=== PATIENT | female | born 1965 | race African-American/Black ===

== ENCOUNTER 2017-01-06 05:50 | Emergency (ER) | payer OTHER ==
[~2017-01-06] VITALS: Ht 160 cm; Wt 73.9 kg
[~2017-01-06 05:50] MED LIST: ALPR0.5T6 PO; AMLO5TAB2 PO; AMOX875T PO; HYDR12.53 PO; LANS1COM PO; LISI1TAB7 PO; METR500T4 PO; SULF1TAB24 PO
[2017-01-06 05:52] VITALS: BP 137/81
[2017-01-06] MEDS ORDERED: FLUORESCEIN OPHTHALMIC 1 MG STRIP ONE (06:38)
[2017-01-06] MEDS ORDERED: PROPARACAINE OPHTH 0.5%, 15ML ONE (06:38)
[2017-01-06] MEDS ORDERED: HYDROcodone/APAP 5/325 TABLET ONE ×2 (06:57→07:04)
[2017-01-06] MEDS ORDERED: HYDROcodone/APAP 5/325 TABLET PO ONE (07:00)
== END 2017-01-06 07:53 | disposition home or self-care (01) ==
LOC: ED 07:10
DX: S05.02XA Injury of conjunctiva and corneal abrasion without foreign body, left eye, initial encounter (principal); G51.0 Bell's palsy; I10 Essential (primary) hypertension; F17.210 Nicotine dependence, cigarettes, uncomplicated; Z88.8 Allergy status to other drugs, medicaments and biological substances; X58.XXXA Exposure to other specified factors, initial encounter; Y93.89 Activity, other specified; Y92.89 Other specified places as the place of occurrence of the external cause; Y99.8 Other external cause status
CPT/HCPCS: 99283

== ENCOUNTER 2017-11-21 04:30 | Emergency (ER) | payer MEDICAID, OTHER ==
[~2017-11-21] VITALS: Ht 160 cm; Wt 71.5 kg
[~2017-11-21 04:30] MED LIST changes: -METR500T4 PO; +METR500T8 PO
[2017-11-21] MEDS ORDERED: SODIUM CHLORIDE FLUSH 10ML SYR IVF ONE (05:00)
[2017-11-21] MEDS ORDERED: ONDANSETRON ODT 8 MG PO ONE (05:00)
[2017-11-21] MEDS ORDERED: MAALOX/HYOSCYAMINE/LIDOCAINE 45 ML BTL PO ONE (05:00)
[2017-11-21] MEDS ORDERED: FAMOTIDINE 20 MG/2 ML IVP ONE (05:00)
[2017-11-21] MEDS ORDERED: ONDANSETRON ODT 8 MG ONE (05:11)
[2017-11-21] MEDS ORDERED: FAMOTIDINE 20 MG/2 ML ONE (05:11)
[2017-11-21] MEDS ORDERED: MAALOX/HYOSCYAMINE/LIDOCAINE 45 ML BTL ONE (05:11)
[2017-11-21 05:27] LABS: BASOPHILS % (AUTO) 1 % (0-1); EOSINOPHILS # (AUTO) 0.19 x10^3/uL (0-0.4); EOSINOPHILS % (AUTO) 2 % (1-7); LYMPHOCYTES # (AUTO) 4.29 x10^3/uL (1-3.4); LYMPHOCYTES % (AUTO) 50 % (22-44); MD NO; MEAN CORPUSCULAR HEMOGLOBIN 30.9 pg (27.0-34.8); MEAN CORPUSCULAR HGB CONC 33.8 g/dL (32.4-35.8); MEAN CORPUSCULAR VOLUME 91.3 fL (80-100); MEAN PLATELET VOLUME 8.1 fL (7.4-10.4); MONOCYTES # (AUTO) 0.67 x10^3/uL (0.2-0.8); MONOCYTES % (AUTO) 8 % (2-9); NEUTROPHILS # (AUTO) 3.32 x10^3/uL (1.8-6.8); NEUTROPHILS % (AUTO) 39 % (42-75); PLATELET COUNT 412 x10^3/uL (130-400); RED BLOOD COUNT 4.41 x10^6/uL (3.82-5.3); RED CELL DISTRIBUTION WIDTH 14.6 % (9.6-15.2)
[2017-11-21 05:34] LABS: ALANINE AMINOTRANSFERASE 19 U/L (12-78); ANION GAP 8 mmol/L (5-15); CALCIUM 9.2 mg/dL (8.5-10.1); CHLORIDE 106 mmol/L (98-107); CREATININE 0.74 mg/dL (0.55-1.02)
[2017-11-21 05:39] LABS: ALKALINE PHOSPHATASE 79 U/L (45-117); BILIRUBIN,TOTAL 0.3 mg/dL (0.2-1.0); TOTAL PROTEIN 7.9 g/dL (6.4-8.2)
[2017-11-21] MEDS ORDERED: POTASSIUM CHLORIDE 20 MEQ TAB.ER.PRT PO ONE (06:00)
[2017-11-21 06:35] LABS: TROPONIN I < 0.015 ng/mL (0.000-0.045)
[2017-11-21 07:40] VITALS: BP 142/91
== END 2017-11-21 07:47 | disposition home or self-care (01) ==
LOC: ED 07:39
DX: K29.50 Unspecified chronic gastritis without bleeding (principal); I10 Essential (primary) hypertension; F17.210 Nicotine dependence, cigarettes, uncomplicated; Z79.899 Other long term (current) drug therapy
CPT/HCPCS: 36415; 80053; 83690; 83880; 84484; 85025; 93005; 96374; 99285; Q0162; S0028